=== PATIENT | female | born 1975 | race Caucasian/White ===

== ENCOUNTER 2019-03-20 10:06 | Day surgery (SDC) | payer OTHER ==
[2019-03-20] MEDS ORDERED: Sodium Chloride 0.9% 10 ML Syringe FLUSH PRN (10:27)
[2019-03-20] MEDS ORDERED: Sodium Chloride 0.9% 1,000 ML IV ONE (10:27)
--- NOTE | 2019-03-20 10:46 | EDM.PDOC ---
ED HPI GENERAL MEDICAL PROBLEM - General Chief Complaint: [employer]SEM[employer]ER Problem Stated Complaint: SNYCOPE, MISCARRIAGE THIS MORNING Time Seen by Provider: 03/20/19 10:54 - History of Present Illness INITIAL COMMENTS - FREE TEXT/NARRATIVE: Patient's unfortunate 43-year-old female who presents to department today with complaint of vaginal bleeding. Patient reports she was in normal state of health until last when she had a sonogram in her OBs office Dr. Mejia and is reported as showing a incomplete AB. Was scheduled for a D&C today at noon. Patient has been nothing by mouth since midnight last night. Patient reports that yesterday she started having vaginal bleeding which was light and spotting which progressed to heavy bleeding last night the patient reports she has been through multiple pads per hour that are completely soaked. Patient reports she got up to the bathroom today and on the commode and passed out the significant other reports that she was out for "a few seconds". Patient did not suffer any trauma did however fall to the ground. She denies any other pain other than suprapubic abdominal pain which she reports as moderate. 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 Denies: Fever, Chills HEENT: Reports: No Symptoms Respiratory: Reports: No Symptoms Cardiovascular: Reports: No Symptoms Endocrine: Reports: No Symptoms GI/Abdominal: Reports: No Symptoms. Denies: Abdominal Pain, Diarrhea, Nausea, Vomiting : Reports: Other (vaginal bleeding) 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: Reports: No Symptoms Skin: Reports: No Symptoms Neurological: Reports: Syncope Psychiatric: Reports: No Symptoms Hematologic/Lymphatic: Reports: No Symptoms Immunologic: Reports: No Symptoms ED EXAM - Physical Exam Exam: See Below General Appearance: Alert, Moderate Distress Throat/Mouth: Normal Inspection, Normal Lips, Normal Oropharynx Respiratory/Chest: No Respiratory Distress, Lungs Clear, Normal Breath Sounds Cardiovascular: Normal Peripheral Pulses, Regular Rate, Rhythm GI/Abdominal Exam: Normal Bowel Sounds, Soft, Tender (suprapubic/moderate) (Female) Exam: Vaginal Bleeding (large clots cleared from vault, large clots in OS), Other (female present for exam) Back Exam: Normal Inspection. No: CVA Tenderness (L), CVA Tenderness (R) Extremities: Normal Inspection, Normal Range of Motion Neurological: Alert, Oriented, CN II-XII Intact Psychiatric: Tearful Skin Exam: Warm, Dry Course - Vital Signs Last Recorded V/S: Last Vital Signs Temp 98.3 F 03/20/19 10:14 Pulse 79 03/20/19 10:14 Resp 12 03/20/19 10:14 BP 95/63 03/20/19 10:14 Pulse Ox 97 03/20/19 10:14 - Orders/Labs/Meds Orders: Active Orders 24 hr Category Date Time Status Pelvic Exam, Set Up [RC] ASDIRECTED Care 03/20/19 10:30 Active CBC WITH AUTO DIFF [HEME] Stat Lab 03/20/19 10:55 Received COMPREHENSIVE METABOLIC PN,CMP [CHEM] Stat Lab 03/20/19 10:55 Received PACKED CELLS [RED BLOOD CELLS LP] [BBK] Stat Lab 03/20/19 10:55 Received TYPE AND SCREEN [BBK] Stat Lab 03/20/19 10:55 Received UA RFX SARAHI AND CULT IF INDIC [URIN] Stat Lab 03/20/19 10:27 Ordered Sodium Chloride 0.9% [Normal Saline] 1,000 ml Med 03/20/19 10:27 Active IV ONETIME Sodium Chloride 0.9% [Saline Flush] Med 03/20/19 10:27 Active 10 ml FLUSH ASDIRECTED PRN Saline Lock Insert [OM.PC] Stat Oth 03/20/19 10:27 Ordered Schedule Procedure [COMM] Stat Oth 03/20/19 11:01 Ordered Medication Orders Sodium Chloride (Normal Saline) 1,000 mls @ 1,000 mls/hr IV ONETIME ONE Stop: 03/20/19 11:26 Sodium Chloride (Saline Flush) 10 ml FLUSH ASDIRECTED PRN PRN Reason: Keep Vein Open Meds: Medications Generic Name Dose Route Start Last Admin Trade Name Freq PRN Reason Stop Dose Admin Sodium Chloride 1,000 mls @ 1,000 mls/hr 03/20/19 10:27 Normal Saline IV 03/20/19 11:26 ONETIME ONE Sodium Chloride 10 ml 03/20/19 10:27 Saline Flush FLUSH ASDIRECTED PRN Keep Vein Open - Re-Assessments/Exams Free Text/Narrative Re-Assessment/Exam: 03/20/19 10:[address] Mejia who will assume care at this point he is in the Department to see the pt Free Text/Narrative Re-Assessment/Exam: 03/20/19 10:59 Patient was seen by Dr. Mejia take the patient to the OR Departure - Departure Time of Disposition: 11:00 Disposition: DC/Tfer to Critical Access [facility] Condition: Critical Clinical Impression: Incomplete , Vaginal hemorrhage - Discharge Information Referrals: Neal Darby MD [Primary Care Provider] - Forms: ED Department Discharge - My Orders Last 24 Hours: My Active Orders 03/20/19 10:27 UA RFX SARAHI AND CULT IF INDIC [URIN] Stat Sodium Chloride 0.9% [Normal Saline] 1,000 ml IV ONETIME Sodium Chloride 0.9% [Saline Flush] 10 ml FLUSH ASDIRECTED PRN Saline Lock Insert [OM.PC] Stat 03/20/19 10:30 Pelvic Exam, Set Up [RC] ASDIRECTED 03/20/19 10:55 CBC WITH AUTO DIFF [HEME] Stat COMPREHENSIVE METABOLIC PN,CMP [CHEM] Stat PACKED CELLS [RED BLOOD CELLS LP] [BBK] Stat TYPE AND SCREEN [BBK] Stat 03/20/19 11:01 Schedule Procedure [COMM] Stat - Assessment/Plan Last 24 Hours: My Active Orders 03/20/19 10:27 UA RFX SARAHI AND CULT IF INDIC [URIN] Stat Sodium Chloride 0.9% [Normal Saline] 1,000 ml IV ONETIME Sodium Chloride 0.9% [Saline Flush] 10 ml FLUSH ASDIRECTED PRN Saline Lock Insert [OM.PC] Stat 03/20/19 10:30 Pelvic Exam, Set Up [RC] ASDIRECTED 03/20/19 10:55 CBC WITH AUTO DIFF [HEME] Stat COMPREHENSIVE METABOLIC PN,CMP [CHEM] Stat PACKED CELLS [RED BLOOD CELLS LP] [BBK] Stat TYPE AND SCREEN [BBK] Stat 03/20/19 11:01 Schedule Procedure [COMM] Stat
[2019-03-20] MEDS ORDERED: Lactated Ringers 1,000 ML IV ONE (11:10)
[2019-03-20] MEDS ORDERED: Lactated Ringers 1,000 ML ONE (11:15)
[2019-03-20] MEDS ORDERED: Methylergonovine 0.2 MG/1 ML Amp ONE (11:31)
--- NOTE | 2019-03-20 12:07 | PCM48HPAN ---
Post Anesthesia Note - EVALUATION WITHIN 48HRS OF ANESTHETIC Vital Signs in Normal Range: Yes Patient Participated in Evaluation: Yes Respiratory Function Stable: Yes Airway Patent: Yes Cardiovascular Function Stable: Yes Hydration Status Stable: Yes Pain Control Satisfactory: Yes Nausea and Vomiting Control Satisfactory: Yes Mental Status Recovered: Yes Vital Signs: Last Vital Signs Temp 36.8 C 03/20/19 10:14 Pulse 79 03/20/19 10:14 Resp 12 03/20/19 10:14 BP 95/63 03/20/19 10:14 Pulse Ox 97 03/20/19 10:14
[2019-03-20] MEDS ORDERED: Lactated Ringers 1,000 ML IV SCH (13:48)
--- NOTE | 2019-03-24 11:31 | PCM.OPNOTE ---
- General Post-Op/Procedure Note Date of Surgery/Procedure: 03/20/19 Operative Procedure(s): Dilation and suction curettage Findings: Uterus sounded to 11 cm. Tissue within the endometrial cavity was consistent with products of conception. No adnexal abnormalities noted. Pre Op Diagnosis: Incomplete spontaneous Post-Op Diagnosis: Same Other Anesthesia Type: [facility] [place] Primary Surgeon: Jesús Mejia Pathology: Endometrial curettings Fluid Replacement, Intraop: 700 EBL in mLs: 100 Complications: None Condition: Good Free Text/Narrative:: Surgery duration: 5 minutes The patient was taken to the operating room and placed in a supine position operating table. She received 2 g of Ancef preoperatively for infection prophylaxis and had sequential compression stockings in place for DVT prophylaxis. After adequate general LMA anesthesia patient was placed in a dorsal lithotomy position. A weighted speculum was placed in the vagina. Cervix is found to be dilated to approximately 1 centimeters. Uterus was sounded to approximately 11 cm. It was found to be anterior and mid position. An 10 mm suction curette was then introduced in routine fashion the endometrial cavity was evacuated. Moderate amount tissue was obtained. Findings consistent with products of conception. A medium size sharp curet was introduced and very careful fashion the endometrial cavity was curetted. It was be clear of any further tissue. The suction curet was then reintroduced and small and blood was removed. No further tissue was removed. This point the D&C was discontinued. The single-toothed tenaculum used to stabilize the anterior lip the cervix was removed. Blood was removed from the vagina with a stick sponge and the weighted speculum was removed from the vagina. The patient was awakened from MAC anesthesia. The patient was discharged from the operating room in good condition.
== END 2019-03-20 15:30 | disposition home or self-care (01) ==
LOC: JD.ED 10:06 → JD.SDS 11:25
PROVIDERS: ATTEND Obstetrics & Gynecology
DX: O03.4 Incomplete spontaneous abortion without complication (principal); K21.9 Gastro-esophageal reflux disease without esophagitis
CPT/HCPCS: 36415; 59812; 80053; 85025; 86850; 86900; 86901; 86922; 99284; J2210; J7040; J7120; 01965

== ENCOUNTER 2019-10-11 11:02 | Day surgery (SDC) | payer OTHER ==
[~2019-10-11 11:02] MED LIST: Lactated Ringers 1,000 ML IV SCH; Lidocaine 1%/Sod Bicarbonate in NS 8.4% 1 ML Syringe IDERM PRN; Sodium Chloride 0.9% 10 ML Syringe FLUSH PRN
--- NOTE | 2019-10-11 11:44 | PCM.PREANE ---
Preanesthetic Assessment - Procedure Proposed Procedure: suction d and c - Anesthesia/Transfusion/Family Hx Anesthesia History: Prior Anesthesia Without Reaction Family History of Anesthesia Reaction: No Transfusion History: Prior Transfusion Without Reaction - Review of Systems General: No Symptoms Pulmonary: No Symptoms Cardiovascular: No Symptoms Gastrointestinal: Abdominal Pain (started yesterday am) Neurological: No Symptoms Other: Reports: Anxiety - Physical Assessment NPO Status Date: 10/10/19 NPO Status Time: 22:00 Vital Signs: Last Vital Signs Temp 97.6 F 10/11/19 11:05 Pulse 73 10/11/19 11:05 Resp 16 10/11/19 11:05 BP 108/62 10/11/19 11:05 Pulse Ox 96 10/11/19 11:05 Height: 5 ft 6 in Weight: 63.503 kg ASA Class: 2 Mental Status: Alert & Oriented x3 Airway Class: Mallampati = 1 Dentition: Reports: Normal Dentition Thyro-Mental Finger Breadths: 3 Mouth Opening Finger Breadths: 3 ROM/Head Extension: Full Lungs: Clear to Auscultation, Normal Respiratory Effort Cardiovascular: Regular Rate, Regular Rhythm, No Murmurs - Allergies Allergies/Adverse Reactions: Allergies Allergy/AdvReac Type Severity Reaction Status Date / Time nitazoxanide [From Alinia] Allergy Hives Verified 03/24/19 13:02 bupropion [From Wellbutrin] AdvReac Change Verified 03/24/19 13:03 Mental Status cephalexin AdvReac Diarrhea Verified 03/24/19 13:03 - Blood Blood Available: No - Acknowledgements Anesthesia Type Planned: MAC Pt an Appropriate Candidate for the Planned Anesthesia: Yes Alternatives and Risks of Anesthesia Discussed w Pt/Guardian: Yes Pt/Guardian Understands and Agrees with Anesthesia Plan: Yes PreAnesthesia Questionnaire - Past Health History Medical/Surgical History: Denies Medical/Surgical History Cardiovascular History: Reports: None Respiratory History: Reports: None Gastrointestinal History: Reports: GERD 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: 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 History: Reports: None Psychiatric History: Reports: Anxiety - Past Surgical History Female Surgical History: Reports: D&C, Other (See Below) Dermatological Surgical History: Reports: Other (See Below) (cdiff transplant) - SUBSTANCE USE Smoking Status *Q: Former Smoker Tobacco Use Within Last Twelve Months: No Second Hand Smoke Exposure: No Days Per Week of Alcohol Use: 1 Recreational Drug Use History: No - HOME MEDS Home Medications: Home Meds Escitalopram [Lexapro] 20 mg PO DAILY 03/20/19 [History] Ibuprofen 600 mg PO Q4HR PRN #30 tablet 03/20/19 [Rx] Pnv No.95/Ferrous Fum/Folic AC [ Caplet] 1 tab PO DAILY 03/20/19 [ History] Ranitidine [Zantac] 150 mg PO ASDIRECTED 03/20/19 [History] lamoTRIgine [Lamotrigine] 150 mg PO DAILY 03/20/19 [History] - CURRENT (IN HOUSE) MEDS Current Meds: Current Medications Lactated Ringer's (Ringers, Lactated) 1,000 mls @ 125 mls/hr IV ASDIRECTED MICAELA Stop: 10/11/19 23:00 Last Admin: 10/11/19 11:20 Dose: 125 mls/hr Lidocaine/Sodium Bicarbonate (Buffered Lidocaine 1% In Ns 8.4%) 0.25 ml IDERM ONETIME PRN PRN Reason: Prior to IV Start Stop: 10/11/19 18:00 Last Admin: 10/11/19 11:19 Dose: 0.25 ml Sodium Chloride (Saline Flush) 10 ml FLUSH ASDIRECTED PRN PRN Reason: Keep Vein Open Stop: 10/11/19 18:00
[2019-10-11] MEDS ORDERED: Midazolam 1 MG/ML 2 ML SDV ONE (11:48)
[2019-10-11] MEDS ORDERED: Propofol 200 MG/20 ML SDV ONE (11:48)
[2019-10-11] MEDS ORDERED: Lidocaine 1% 4 ML ONE (11:48)
[2019-10-11] MEDS ORDERED: fentaNYL 100 MCG/2 ML SDV ONE (11:48)
[2019-10-11] MEDS ORDERED: Ketorolac 30 MG/ML SDV ONE (12:00)
[2019-10-11] MEDS ORDERED: Ondansetron 4 MG/2 ML SDV ONE (12:00)
--- NOTE | 2019-10-11 12:30 | PCM48HPAN ---
Post Anesthesia Note - EVALUATION WITHIN 48HRS OF ANESTHETIC Vital Signs in Normal Range: Yes Patient Participated in Evaluation: Yes Respiratory Function Stable: Yes Airway Patent: Yes Cardiovascular Function Stable: Yes Hydration Status Stable: Yes Pain Control Satisfactory: Yes Nausea and Vomiting Control Satisfactory: Yes Mental Status Recovered: Yes Vital Signs: Last Vital Signs Temp 97.6 F 10/11/19 11:05 Pulse 73 10/11/19 11:05 Resp 16 10/11/19 11:05 BP 108/62 10/11/19 11:05 Pulse Ox 96 10/11/19 11:05 1226 71 16 98.9 104/56 94%
[2019-10-11] MEDS ORDERED: Ondansetron 4 MG/2 ML SDV IVPUSH PRN (12:33)
[2019-10-11] MEDS ORDERED: Ibuprofen 600 MG Tab PO PRN ×2 (12:33→18:00)
--- NOTE | 2019-10-11 12:38 | PCM.OPNOTE ---
- General Post-Op/Procedure Note Date of Surgery/Procedure: 10/11/19 Operative Procedure(s): Dilation and suction curettage Findings: Uterus sounded to 10 cm. It was posteriorly positioned. Approximately 8 weeks size. Adnexa within normal ends without masses. Cervix is 1-2 Zhu dilated. Tissue removed from the endometrial cavity was consistent with products of conception. Patient was bleeding at the time of the initiation of the procedure. Pre Op Diagnosis: Threatened miscarriage Post-Op Diagnosis: Inevitable miscarriage Anesthesia Technique: Moderate Sedation Pathology: Endometrial curettings Fluid Replacement, Intraop: 600 EBL in mLs: 25 Complications: None Condition: Good Free Text/Narrative:: Surgery duration: 17 minutes The patient was taken to the operating room and placed in a supine position operating table. After adequate general LMA anesthesia patient was placed in a dorsal lithotomy position. A weighted speculum was placed in the vagina. Cervix is found to be dilated to approximately 1-2 centimeters. Uterus was sounded to approximately 10 cm. It was found to be posterior and mid position. An 7 mm suction curette was then introduced in routine fashion the endometrial cavity was evacuated. Moderate amount tissue was obtained. Findings consistent with products of conception. A medium size sharp curet was introduced and very careful fashion the endometrial cavity was curetted. It was be clear of any further tissue. The suction curet was then reintroduced and small and blood was removed. No further tissue was removed. This point the D&C was discontinued. The single-toothed tenaculum used to stabilize the anterior lip the cervix was removed. Blood was removed from the vagina with a stick sponge and the weighted speculum was removed from the vagina. The patient was discharged from the operating room in good condition.
== END 2019-10-11 13:55 | disposition home or self-care (01) ==
LOC: JD.SDS 11:02
PROVIDERS: ATTEND Obstetrics & Gynecology
DX: O03.4 Incomplete spontaneous abortion without complication (principal); Z88.8 Allergy status to other drugs, medicaments and biological substances; Z87.891 Personal history of nicotine dependence; Z79.899 Other long term (current) drug therapy
CPT/HCPCS: 59812; J1885; J2001; J2250; J2405; J2704; J3010; J7120; 01965

== ENCOUNTER 2020-07-10 17:35 | Inpatient (IN) | payer OTHER ==
[2020-07-10] MEDS ORDERED: Lactated Ringers 1,000 ML ONE ×2 (20:21→21:19)
[2020-07-10] MEDS ORDERED: Citric Acid/Sodium Citrate Solution 30 ML Cup ONE (20:21)
[2020-07-10] MEDS ORDERED: Metoclopramide 10 MG/2 ML SDV ONE (20:21)
[2020-07-10] MEDS ORDERED: Citric Acid/Sodium Citrate Solution 30 ML Cup PO ONE (20:28)
[2020-07-10] MEDS ORDERED: Sodium Chloride 0.9% 10 ML Syringe FLUSH PRN (20:28)
[2020-07-10] MEDS ORDERED: Metoclopramide 10 MG/2 ML SDV IVPUSH ONE (20:28)
[2020-07-10] MEDS ORDERED: Oxytocin/Lactated Ringers 10 UNIT/1,000 ML BAG IV SCH (20:30)
[2020-07-10] MEDS ORDERED: Lactated Ringers 1,000 ML IV SCH (20:30)
[2020-07-10] MEDS ORDERED: Clindamycin Phosphate in D5W 900 MG in Premix Bag 1 BAG IV ONE ×2 (20:31)
[2020-07-10] MEDS ORDERED: Bupivacaine 0.5% 30 ML SDV ONE (20:39)
[2020-07-10] MEDS ORDERED: Gentamicin 40 MG/ML 2 ML Vial ONE (20:39)
--- NOTE | 2020-07-10 20:39 | PCM.PREANE ---
Preanesthetic Assessment - Procedure Proposed Procedure: Urgent - Anesthesia/Transfusion/Family Hx Anesthesia History: Prior Anesthesia Without Reaction Transfusion History: Prior Transfusion Without Reaction - Review of Systems General: No Symptoms Pulmonary: No Symptoms, Cough Cardiovascular: No Symptoms Gastrointestinal: No Symptoms Neurological: No Symptoms Other: Reports: None - Physical Assessment NPO Status Date: 07/10/20 NPO Status Time: 16:00 Vital Signs: Last Vital Signs Temp 98.1 F 07/10/20 18:00 Pulse 91 07/10/20 18:00 Resp 14 07/10/20 18:00 BP 128/80 07/10/20 18:00 Pulse Ox 98 07/10/20 18:00 Height: 1.68 m Weight: 68.039 kg ASA Class: 3E Mental Status: Alert & Oriented x3 Airway Class: Mallampati = 1 Dentition: Reports: Normal Dentition Thyro-Mental Finger Breadths: 3 Mouth Opening Finger Breadths: 3 ROM/Head Extension: Full Lungs: Clear to Auscultation, Normal Respiratory Effort Cardiovascular: Regular Rate, Regular Rhythm - Lab Values: Laboratory Last Values SARS-CoV-2 RNA (MAGALIS) Negative (NEGATIVE) 07/10/20 19:15 - Allergies Allergies/Adverse Reactions: Allergies Allergy/AdvReac Type Severity Reaction Status Date / Time nitazoxanide [From Alinia] Allergy Hives Verified 07/10/20 17:48 bupropion [From Wellbutrin] AdvReac Change Verified 07/10/20 17:48 Mental Status cephalexin AdvReac Diarrhea Verified 07/10/20 17:48 - Acknowledgements Anesthesia Type Planned: General Anesthesia, Spinal Pt an Appropriate Candidate for the Planned Anesthesia: Yes Alternatives and Risks of Anesthesia Discussed w Pt/Guardian: Yes Pt/Guardian Understands and Agrees with Anesthesia Plan: Yes PreAnesthesia Questionnaire - Past Health History Medical/Surgical History: Denies Medical/Surgical History Cardiovascular History: Reports: None Respiratory History: Reports: None 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: 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 History: Reports: None Psychiatric History: Reports: Anxiety Endocrine/Metabolic History: Reports: Diabetes, Gestational Hematologic History: Reports: Anemia - Past Surgical History Female Surgical History: Reports: D&C, Other (See Below) Dermatological Surgical History: Reports: Other (See Below) (cdiff transplant) - HOME MEDS Home Medications: Home Meds Escitalopram [Lexapro] 10 mg PO DAILY 03/20/19 [History] Pnv No.95/Ferrous Fum/Folic AC [ Caplet] 1 tab PO DAILY 03/20/19 [History] lamoTRIgine [Lamotrigine] 150 mg PO DAILY 03/20/19 [History] Ferrous Sulfate [Iron] 325 mg PO 06/07/20 [History] NIFEdipine [Procardia] 10 mg PO TID PRN #60 cap 06/07/20 [Rx] metFORMIN HCl [Metformin HCl] 500 mg PO DAILY 06/07/20 [History] - CURRENT (IN HOUSE) MEDS Current Meds: Current Medications Gentamicin Sulfate (Pharmacy To Dose - Gentamicin) 1 dose .XX ASDIRECTED MICAELA Lactated Ringer's (Ringers, Lactated) 1,000 mls @ 125 mls/hr IV ASDIRECTED MICAELA Oxytocin/Lactated Ringer's (Pitocin In Lr 10 Units/1,000 Ml) 10 unit in 1,000 mls @ 100 mls/hr IV ASDIRECTED MICAELA Clindamycin Phosphate 900 mg/ (Premix) 50 mls @ 100 mls/hr IV ONETIME ONE Stop: 07/10/20 21:00 Sodium Chloride (Saline Flush) 10 ml FLUSH ASDIRECTED PRN PRN Reason: Keep Vein Open Discontinued Medications Citric Acid/Sodium Citrate (Bicitra Solution) Confirm Administered Dose 30 ml .ROUTE .STK-MED ONE Stop: 07/10/20 20:22 Last Admin: 07/10/20 20:26 Dose: 30 ml Documented by: Citric Acid/Sodium Citrate (Bicitra Solution) 30 ml PO ONETIME ONE Stop: 07/10/20 20:29 Lactated Ringer's (Ringers, Lactated) Confirm Administered Dose 1,000 mls @ as directed .ROUTE .STK-MED ONE Stop: 07/10/20 20:22 Last Admin: 07/10/20 20:26 Dose: 999 mls/hr Documented by: Metoclopramide HCl (Reglan) Confirm Administered Dose 10 mg .ROUTE .STK-MED ONE Stop: 07/10/20 20:22 Last Admin: 07/10/20 20:28 Dose: 10 mg Documented by: Metoclopramide HCl (Reglan) 10 mg IVPUSH ONETIME ONE Stop: 07/10/20 20:29
[2020-07-10] MEDS ORDERED: Sodium Chloride 0.9% 100 ML ONE (20:40)
[2020-07-10] MEDS ORDERED: Morphine PF 10 MG/10 ML SDV ONE (20:42)
[2020-07-10] MEDS ORDERED: fentaNYL 100 MCG/2 ML SDV ONE (20:42)
[2020-07-10] MEDS ORDERED: Oxytocin 10 Units/1 ML SDV ONE (20:42)
[2020-07-10] MEDS ORDERED: SODIUM CHLORIDE 0.9% IV SCH (21:00)
[2020-07-10] MEDS ORDERED: GENTAMICIN IV SCH (21:00)
[2020-07-10] MEDS ORDERED: fentaNYL 100 MCG/2 ML SDV IVPUSH PRN (21:22)
[2020-07-10] MEDS ORDERED: Ondansetron 4 MG/2 ML SDV IVPUSH PRN (21:22)
[2020-07-10] MEDS ORDERED: diphenhydrAMINE 50 MG/ML SDV IVPUSH PRN (21:22)
[2020-07-10] MEDS ORDERED: Ketorolac 30 MG/ML SDV ONE (21:38)
--- NOTE | 2020-07-10 21:56 | PCM.POSTAN ---
POST ANESTHESIA ASSESSMENT - MENTAL STATUS Mental Status: Alert, Oriented - VITAL SIGNS Vital Signs: Last Vital Signs Temp 97.8 F 07/10/20 21:45 Pulse 91 07/10/20 18:00 Resp 14 07/10/20 21:45 BP 121/67 07/10/20 21:45 Pulse Ox 95 07/10/20 21:45 - RESPIRATORY Respiratory Status: Respiratory Rate WNL, Airway Patent, O2 Saturation Stable - CARDIOVASCULAR CV Status: Pulse Rate WNL, Blood Pressure Stable - GASTROINTESTINAL GI Status: No Symptoms - PAIN Pain Score: 0 (post SAB) - POST OP HYDRATION Hydration Status: Adequate & Stable
--- NOTE | 2020-07-10 22:04 | PCM.LDHP ---
L&D History of Present Illness - General Date of Service: 07/10/20 Admit Problem/Dx: Patient Status Order with Admit Dx/Problem 07/10/20 17:41 Patient Status [ADT] Routine 07/10/20 20:28 Patient Status [ADT] Routine Admission Diagnosis/Problem Admission Diagnosis/Problem - History of Present Illness Introduction:: 44 year old female at 38w4 who had been in clinic for an NST. Had a deceleration toward end of monitoring so was sent for prolonged monitoring. Had overall reassuring monitoring with some deep variable decelerations and marked variability. As I was discussing recommendation for induction of labor there was a deceleration to the 50s for 4 minutes and then gradual slow return to baseline but tachycardia. Decision made during deceleration to proceed with section. After return to baseline did discuss options but patient chose to proceed with . - Related Data Allergies/Adverse Reactions: Allergies Allergy/AdvReac Type Severity Reaction Status Date / Time nitazoxanide [From Alinia] Allergy Hives Verified 07/10/20 17:48 bupropion [From Wellbutrin] AdvReac Change Verified 07/10/20 17:48 Mental Status cephalexin AdvReac Diarrhea Verified 07/10/20 17:48 Home Medications: Home Meds Escitalopram [Lexapro] 10 mg PO DAILY 03/20/19 [History] Pnv No.95/Ferrous Fum/Folic AC [ Caplet] 1 tab PO DAILY 03/20/19 [H istory] lamoTRIgine [Lamotrigine] 150 mg PO DAILY 03/20/19 [History] Ferrous Sulfate [Iron] 325 mg PO 06/07/20 [History] NIFEdipine [Procardia] 10 mg PO TID PRN #60 cap 06/07/20 [Rx] metFORMIN HCl [Metformin HCl] 500 mg PO DAILY 06/07/20 [History] Past Medical History - Past Health History Medical/Surgical History: Denies Medical/Surgical History Cardiovascular History: Reports: None Respiratory History: Reports: None Gastrointestinal History: Reports: GER[employer] 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: 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 History: Reports: None Psychiatric History: Reports: Anxiety Endocrine/Metabolic History: Reports: Diabetes, Gestational Hematologic History: Reports: Anemia - Past Surgical History Female Surgical History: Reports: D&C, Other (See Below) Dermatological Surgical History: Reports: Other (See Below) (cdiff transplant) Social & Family History - Family History Family Medical History: No Pertinent Family History - Caffeine Use Caffeine Use: Reports: None H&P Review of Systems - Review of Systems: Review Of Systems: See Below General: Reports: No Symptoms HEENT: Reports: No Symptoms Pulmonary: Reports: No Symptoms Cardiovascular: Reports: No Symptoms Gastrointestinal: Reports: No Symptoms Genitourinary: Reports: No Symptoms 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: Reports: No Symptoms Skin: Reports: No Symptoms Psychiatric: Reports: No Symptoms Neurological: Reports: No Symptoms Hematologic/Lymphatic: Reports: No Symptoms Immunologic: Reports: No Symptoms L&D Exam - Exam Exam: See Below - Vital Signs Vital Signs: Last Vital Signs Temp 36.6 C 07/10/20 21:45 Pulse 91 07/10/20 18:00 Resp 14 07/10/20 21:45 BP 121/67 07/10/20 21:45 Pulse Ox 95 07/10/20 21:45 Weight: 68.039 kg - OB Specific Contraction Intensity: Moderate Movement: Active Heart Tones: Present Heart Rate (FHR) Variability: Moderate (6-25 bmp) Presentation: Vertex - Fuller Score Fuller Score Cervix Position: Anterior Fuller Score Consistency: Soft Fuller Score Effacement: 51-70% Fuller Score Dilation: 1-2 cm Fuller Score 's Station: -2 Fuller Score Total: 8 - Exam General: Alert, Oriented HEENT: PERRLA, Conjunctiva Clear, EACs Clear, EOMI, Hearing Intact, Mucosa Moist & [place], Nares Patent, Normal Nasal Septum, Posterior Pharynx Clear, TMs Clear Neck: Supple, Trachea Midline Lungs: Clear to Auscultation, Normal Respiratory Effort Cardiovascular: Regular Rate, Regular Rhythm GI/Abdominal Exam: Normal Bowel Sounds, Soft, Non-Tender, No Organomegaly, No Distention, No Abnormal Bruit, No Mass, Pelvis Stable Extremities: Normal Inspection, Normal Range of Motion, Non-Tender, No Pedal Edema, Normal Capillary Refill Skin: Warm, Dry, Intact Neurological: Cranial Nerves Intact, Reflexes Equal Bilateral Psychiatric: Alert, Normal Affect, Normal Mood - Patient Data Lab Results Last 24 hrs: Laboratory Results - last 24 hr 07/10/20 07/10/20 07/10/20 Range/Units 19:15 20:23 20:27 WBC (3.98-10.04) K/mm3 RBC (3.98-5.22) M/mm3 Hgb (11.2-15.7) gm/dl Hct (34.1-44.9) % MCV (79.4-94.8) fl MCH (25.6-32.2) pg MCHC (32.2-35.5) g/dl RDW Std Deviation (36.4-46.3) fL Plt Count (182-369) K/mm3 MPV (9.4-12.3) fl POC Glucose 87 (70-105) mg/dL SARS-CoV-2 RNA (MAGALIS) Negative (NEGATIVE) Blood Type O POSITIVE 07/10/20 Range/Units 20:27 WBC 7.47 (3.98-10.04) K/mm3 RBC 4.11 (3.98-5.22) M/mm3 Hgb 10.4 L (11.2-15.7) gm/dl Hct 33.3 L (34.1-44.9) % MCV 81.0 (79.4-94.8) fl MCH 25.3 L (25.6-32.2) pg MCHC 31.2 L (32.2-35.5) g/dl RDW Std Deviation 57.7 H (36.4-46.3) fL Plt Count 265 (182-369) K/mm3 MPV 9.5 (9.4-12.3) fl POC Glucose (70-105) mg/dL SARS-CoV-2 RNA (MAGALIS) (NEGATIVE) Blood Type Result Diagrams: 07/10/20 20:27 Problem List Initiated/Reviewed/Updated: Yes Orders Last 24hrs: Active Orders 24 hr Category Date Time Status Patient Status Manage Transfer [TRANSFER] Routine ADT 07/10/20 21:51 Ordered Patient Status [ADT] Routine ADT 07/10/20 17:41 Active Patient Status [ADT] Routine ADT 07/10/20 20:28 Active Communication Order [RC] ASDIRECTED Care 07/10/20 21:22 Active Communication Order [RC] PER UNIT ROUTINE Care 07/10/20 21:22 Active Communication Order [RC] ROUTINE Care 07/10/20 20:28 Active Cooling Warming Measures [RC] ASDIRECTED Care 07/10/20 21:22 Active Heart Tones [RC] PER UNIT ROUTINE Care 07/10/20 20:28 Active Non Stress Test [RC] PER UNIT ROUTINE Care 07/10/20 20:28 Active Notify Provider [RC] ASDIRECTED Care 07/10/20 21:22 Active Oxygen Therapy [RC] ASDIRECTED Care 07/10/20 21:22 Active Peripheral IV Care [RC] . DIRECTED Care 07/10/20 20:28 Active Procedure Site Prep Instruct [RC] ASDIRECTED Care 07/10/20 20:28 Active Pulse Oximetry [RC] ASDIRECTED Care 07/10/20 21:22 Active Verify Patient Consent Obtain [RC] PER UNIT ROUTINE Care 07/10/20 20:28 Active Vital Signs [RC] PER UNIT ROUTINE Care 07/10/20 17:41 Active Vital Signs [RC] PFP Care 07/10/20 20:28 Active Vital Signs [RC] Q15M Care 07/10/20 21:22 Active Vital Signs [RC] Q1H Care 07/10/20 21:22 Active RAPID PLASMA REAGIN,RPR [CHEM] Routine Lab 07/10/20 20:27 Received TYPE AND SCREEN [BBK] Routine Lab 07/10/20 20:27 Results Gentamicin 108 mg Med 07/10/20 21:00 Active Sodium Chloride 0.9% [Normal Saline] 100 ml IV Q8H Lactated Ringers [Ringers, Lactated] 1,000 ml Med 07/10/20 20:30 Active IV ASDIRECTED Ondansetron [Zofran] Med 07/10/20 21:22 Active 4 mg IVPUSH ONETIME PRN Oxytocin/Lactated Ringers [Pitocin in LR 10 Units/1,000 Med 07/10/20 20:30 Active ML] 10 unit in 1,000 ml IV ASDIRECTED Pharmacy to Dose - Gentamicin Med 07/10/20 20:45 Pending 1 dose .XX ASDIRECTED Sodium Chloride 0.9% [Saline Flush] Med 07/10/20 20:28 Active 10 ml FLUSH ASDIRECTED PRN diphenhydrAMINE [Benadryl] Med 07/10/20 21:22 Active 25 mg IVPUSH Q6H PRN fentaNYL [Sublimaze] Med 07/10/20 21:22 Active 50 mcg IVPUSH Q5M PRN Peripheral IV Insertion Adult [OM.PC] Routine Oth 07/10/20 20:28 Ordered Pulse Oximetry Continuous Monitoring [OM.PC] Routine Oth 07/10/20 21:22 Active Schedule Procedure [COMM] Per Unit Routine Oth 07/10/20 20:28 Ordered Resuscitation Status Routine Resus Stat 07/10/20 17:41 Ordered Medication Orders Diphenhydramine HCl (Benadryl) 25 mg IVPUSH Q6H PRN PRN Reason: Pruritis Fentanyl (Sublimaze) 50 mcg IVPUSH Q5M PRN PRN Reason: Pain Gentamicin Sulfate (Pharmacy To Dose - Gentamicin) 1 dose .XX ASDIRECTED MICAELA Lactated Ringer's (Ringers, Lactated) 1,000 mls @ 125 mls/hr IV ASDIRECTED MICAELA Oxytocin/Lactated Ringer's (Pitocin In Lr 10 Units/1,000 Ml) 10 unit in 1,000 mls @ 100 mls/hr IV ASDIRECTED MICAELA Gentamicin Sulfate 108 mg/ (Sodium Chloride) 102.7 mls @ 102.7 mls/hr IV Q8H MICAELA Ondansetron HCl (Zofran) 4 mg IVPUSH ONETIME PRN PRN Reason: Nausea/Vomiting Sodium Chloride (Saline Flush) 10 ml FLUSH ASDIRECTED PRN PRN Reason: Keep Vein Open Assessment/Plan Comment:: Proceed with urgent section.
--- NOTE | 2020-07-10 22:12 | PCM.OPNOTE ---
- General Post-Op/Procedure Note Date of Surgery/Procedure: 07/10/20 Operative Procedure(s): primary section. Pre Op Diagnosis: non-reassuring status Post-Op Diagnosis: Same Anesthesia Technique: Spinal Primary Surgeon: Vi Martino Food Truck Caterer: Fernanda Brown Fluid Replacement, Intraop: 1,500 Output, Urine Amount: 250 EBL in mLs: 900 Complications: None Condition: Good Free Text/Narrative:: The patient was taken to the operating room where spinal anesthesia was dosed to surgical levels without difficulty. The patient was prepped and draped in the usual sterile fashion in the dorsal supine position with a leftward tilt. A Pfannenstiel skin incision was made with the scalpel and carried through to the underlying layer of fascia. The fascia was incised in the midline and extended laterally using Moncada scissors. Sandeep clamps were used to elevate the superior aspect of the fascial incision, which was elevated, and the underlying rectus muscles were dissected off bluntly and using Moncada scissors. Attention was then turned to the inferior aspect of the fascial incision, which in similar fashion was grasped with Sandeep clamps, elevated, and the underlying rectus muscles were dissected off bluntly and using the moncada. The rectus muscles were dissected in the midline. The peritoneum was entered bluntly; this incision was extended superiorly and inferiorly with good visualization of the bladder. The bladder blade was inserted. The vesicouterine peritoneum was identified and entered sharply using Metzenbaum scissors. This incision was extended laterally and the bladder flap was created digitally. The bladder blade was reinserted. The lower uterine segment was incised in a transverse fashion using the scalpel and with digital traction. Clear fluid was noted. The was subsequently delivered by flexing the head to the incision. Body and shoulders followed without difficulty. The cord was clamped and cut. The infant was subsequently handed to the awaiting dot net developer whose presence had been requested.. The placenta was delivered spontaneously intact with a three-vessel cord noted. The uterus was exteriorized and cleared of all clots and debris. The uterine incision was repaired in 2 layers using 0 monocryl. Hemostasis was visualized. Hemostasis was visualized bilaterally. The uterus was returned to the abdomen. The uterine incision was reexamined and it was noted to be hemostatic. The pelvis was copiously irrigated. The fascia was closed with 1 PDS suture, and the skin was closed with 3-0 monocryl. Sponge, lap, and instrument counts were correct x2. The patient was stable at the completion of the procedure and was subsequently transferred to the recovery room in stable condition.
[2020-07-11] MEDS ORDERED: ePHEDrine 50 MG/ML SDV IVPUSH PRN (00:46)
[2020-07-11] MEDS ORDERED: Naloxone 0.4 MG/ML SDV IVPUSH PRN (00:46)
[2020-07-11] MEDS ORDERED: Dextrose 5%-Lactated Ringers 1,000 ML IV SCH (00:46)
[2020-07-11] MEDS ORDERED: diphenhydrAMINE 50 MG/ML SDV IVPUSH PRN (00:46)
--- NOTE | 2020-07-11 02:44 | PCM.PNPP ---
- General Info Date of Service: 07/11/20 Subjective Update: 44 year old postop day 1 from section for NRFHT. Doing well. Functional Status: Reports: Pain Controlled - Review of Systems General: Reports: No Symptoms HEENT: Reports: No Symptoms Pulmonary: Reports: No Symptoms Cardiovascular: Reports: No Symptoms Gastrointestinal: Reports: No Symptoms Genitourinary: Reports: No Symptoms 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: Reports: No Symptoms Skin: Reports: No Symptoms Neurological: Reports: No Symptoms Psychiatric: Reports: No Symptoms - General Info Date of Service: 07/11/20 - Patient Data Vital Signs - Most Recent: Last Vital Signs Temp 36.7 C 07/11/20 00:40 Pulse 87 07/11/20 01:24 Resp 15 07/11/20 02:00 BP 129/76 07/11/20 00:40 Pulse Ox 97 07/11/20 02:00 Weight - Most Recent: 68.039 kg I&O - Last 24 Hours: Intake & Output 07/10/20 07/10/20 07/11/20 14:59 22:59 06:59 Intake Total 2100 900 Output Total 750 350 Balance 1350 550 Lab Results - Last 24 Hours: Laboratory Results - last 24 hr 07/10/20 07/10/20 07/10/20 Range/Units 19:15 20:23 20:27 WBC (3.98-10.04) K/mm3 RBC (3.98-5.22) M/mm3 Hgb (11.2-15.7) gm/dl Hct (34.1-44.9) % MCV (79.4-94.8) fl MCH (25.6-32.2) pg MCHC (32.2-35.5) g/dl RDW Std Deviation (36.4-46.3) fL Plt Count (182-369) K/mm3 MPV (9.4-12.3) fl POC Glucose 87 (70-105) mg/dL RPR Non-reactive (NONREACTIVE) SARS-CoV-2 RNA (MAGALIS) Negative (NEGATIVE) Blood Type Gel Antibody Screen 07/10/20 07/10/20 Range/Units 20:27 20:27 WBC 7.47 (3.98-10.04) K/mm3 RBC 4.11 (3.98-5.22) M/mm3 Hgb 10.4 L (11.2-15.7) gm/dl Hct 33.3 L (34.1-44.9) % MCV 81.0 (79.4-94.8) fl MCH 25.3 L (25.6-32.2) pg MCHC 31.2 L (32.2-35.5) g/dl RDW Std Deviation 57.7 H (36.4-46.3) fL Plt Count 265 (182-369) K/mm3 MPV 9.5 (9.4-12.3) fl POC Glucose (70-105) mg/dL RPR (NONREACTIVE) SARS-CoV-2 RNA (MAGALIS) (NEGATIVE) Blood Type O POSITIVE Gel Antibody Screen Negative Med Orders - Current: Current Medications Diphenhydramine HCl (Benadryl) 25 mg IVPUSH Q6H PRN PRN Reason: Itching or Nausea Docusate Sodium (Colace) 100 mg PO Q12H PRN PRN Reason: Constipation Ephedrine Sulfate (Ephedrine Sulfate) 5 mg IVPUSH SEECOMMENT PRN PRN Reason: Other Dextrose/Lactated Ringer's (Dextrose 5%-Lactated Ringers) 1,000 mls @ 125 mls/hr IV ASDIRECTED [facility] Stop: 07/11/20 08:45 Last Admin: 07/11/20 01:16 Dose: 125 mls/hr Documented by: Ibuprofen (Motrin) 600 mg PO Q6H PRN PRN Reason: mild pain or fever Ketorolac Tromethamine (Toradol) 30 mg IVPUSH Q6H [facility] Stop: 07/11/20 16:01 Naloxone HCl (Narcan) 0.1 mg IVPUSH SEECOMMENT PRN PRN Reason: Respiratory Depression Oxycodone/Acetaminophen (Percocet 325-5 Mg) 1 tab PO Q4H PRN PRN Reason: Pain (moderate 4-6) Oxycodone/Acetaminophen (Percocet 325-5 Mg) 2 tab PO Q4H PRN PRN Reason: Pain (severe 7-10) Discontinued Medications Bupivacaine HCl (Marcaine 0.5%) Confirm Administered Dose 30 ml .ROUTE .STK-MED ONE Stop: 07/10/20 20:40 Last Admin: 07/10/20 21:08 Dose: 20 ml Documented by: Citric Acid/Sodium Citrate (Bicitra Solution) Confirm Administered Dose 30 ml .ROUTE .ST-MED ONE Stop: 07/10/20 20:22 Last Admin: 07/10/20 20:26 Dose: 30 ml Documented by: Citric Acid/Sodium Citrate (Bicitra Solution) 30 ml PO ONETIME ONE Stop: 07/10/20 20:29 Last Admin: 07/11/20 01:09 Dose: Not Given Documented by: Diphenhydramine HCl (Benadryl) 25 mg IVPUSH Q6H PRN PRN Reason: Pruritis Fentanyl (Sublimaze) Confirm Administered Dose 100 mcg .ROUTE .ST-MED ONE Stop: 07/10/20 20:43 Fentanyl (Sublimaze) 50 mcg IVPUSH Q5M PRN PRN Reason: Pain Gentamicin Sulfate (Pharmacy To Dose - Gentamicin) 1 dose .XX ASDIRECTED [facility] Gentamicin Sulfate (Gentamicin) Confirm Administered Dose 160 mg .ROUTE .[facility] ONE Stop: 07/10/20 20:40 Last Admin: 07/11/20 01:08 Dose: Not Given Documented by: Lactated Ringer's (Ringers, Lactated) Confirm Administered Dose 1,000 mls @ as directed .ROUTE .[facility] ONE Stop: 07/10/20 20:22 Last Admin: 07/10/20 20:26 Dose: 999 mls/hr Documented by: Lactated Ringer's (Ringers, Lactated) 1,000 mls @ 125 mls/hr IV ASDIRECTED [facility] Oxytocin/Lactated Ringer's (Pitocin In Lr 10 Units/1,000 Ml) 10 unit in 1,000 mls @ 100 mls/hr IV ASDIRECTED [facility] Clindamycin Phosphate 900 mg/ (Premix) 50 mls @ 100 mls/hr IV ONETIME ONE Stop: 07/10/20 21:00 Last Admin: 07/11/20 01:19 Dose: 100 mls/hr Documented by: Sodium Chloride (Normal Saline) Confirm Administered Dose 100 mls @ as directed .ROUTE .[facility]-MED ONE Stop: 07/10/20 20:41 Last Admin: 07/11/20 01:19 Dose: 200 mls/hr Documented by: Gentamicin Sulfate 108 mg/ (Sodium Chloride) 102.7 mls @ 102.7 mls/hr IV Q8H [facility] Last Admin: 07/11/20 01:19 Dose: 102.7 mls/hr Documented by: Lactated Ringer's (Ringers, Lactated) Confirm Administered Dose 1,000 mls @ as directed .ROUTE .STK-MED ONE Stop: 07/10/20 21:20 Ketorolac Tromethamine (Toradol) Confirm Administered Dose 30 mg .ROUTE .STK-MED ONE Stop: 07/10/20 21:39 Metoclopramide HCl (Reglan) Confirm Administered Dose 10 mg .ROUTE .STK-MED ONE Stop: 07/10/20 20:22 Last Admin: 07/10/20 20:28 Dose: 10 mg Documented by: Metoclopramide HCl (Reglan) 10 mg IVPUSH ONETIME ONE Stop: 07/10/20 20:29 Last Admin: 07/11/20 01:09 Dose: Not Given Documented by: Miscellaneous Medication (Phenylephrine 1 Mg/10 Ml-Ns) Confirm Administered Dose 1 mg .ROUTE .STK-MED ONE Stop: 07/10/20 21:06 Morphine Sulfate (Duramorph Pf) Confirm Administered Dose 10 mg .ROUTE .STK-MED ONE Stop: 07/10/20 20:43 Ondansetron HCl (Zofran) 4 mg IVPUSH ONETIME PRN PRN Reason: Nausea/Vomiting Oxytocin (Pitocin) Confirm Administered Dose 20 unit .ROUTE .STK-MED ONE Stop: 07/10/20 20:43 Sodium Chloride (Saline Flush) 10 ml FLUSH ASDIRECTED PRN PRN Reason: Keep Vein Open - Interaction Support Person: - Recovery Exam Fundal Tone: Firm Fundal Level: 1 Fingerbreadths Below Umbilicus Fundal Placement: Midline Lochia Amount: Small Lochia Color: Rubra/Red Perineum Description: Intact, Minimal Bruising/Swelling Bladder Status: Indwelling Catheter in Place - Exam General: Alert, Oriented HEENT: Pupils Equal Neck: Supple Lungs: Normal Respiratory Effort GI/Abdominal Exam: Normal Bowel Sounds, Soft, Non-Tender, No Organomegaly, No Distention, No Abnormal Bruit, No Mass, Pelvis Stable Extremities: Normal Inspection, Normal Range of Motion, Non-Tender, No Pedal Edema, Normal Capillary Refill Psy/Mental Status: Alert, Normal Affect, Normal Mood - Problem List Review Problem List Initiated/Reviewed/Updated: Yes - My Orders Last 24 Hours: My Active Orders 07/10/20 17:41 Resuscitation Status Routine 07/11/20 00:46 Acetaminophen/oxyCODONE [Percocet 325-5 MG] 1 tab PO Q4H PRN Acetaminophen/oxyCODONE [Percocet 325-5 MG] 2 tab PO Q4H PRN Dextrose 5%-Lactated Ringers 1,000 ml IV ASDIRECTED Docusate Sodium [Colace] 100 mg PO Q12H PRN Naloxone [Narcan] 0.1 mg IVPUSH SEECOMMENT PRN diphenhydrAMINE [Benadryl] 25 mg IVPUSH Q6H PRN ePHEDrine [ePHEDrine sulfate] 5 mg IVPUSH SEECOMMENT PRN 07/11/20 00:46 Patient Status [ADT] Routine Communication Order [RC] PER UNIT ROUTINE Communication Order [RC] PER UNIT ROUTINE Communication Order [RC] PER UNIT ROUTINE Notify Provider Intake and Out [RC] ASDIRECTED Vital Signs [RC] Q1HR Assess Lochia [WOMSER] Per Unit Routine Assess Uterine Involution [WOMSER] Per Unit Routine Medication Administration Instruction [OM.PC] Routine 07/11/20 04:00 Ketorolac [Toradol] 30 mg IVPUSH Q6H 07/11/20 05:11 CBC WITH AUTO DIFF [HEME] AM 07/11/20 Breakfast Regular Diet [DIET] 07/11/20 21:52 Urinary Catheter Removal [RC] Per Unit Routine 07/11/20 22:00 Ibuprofen [Motrin] 600 mg PO Q6H PRN - Plan Plan:: Doing well Probable discharge tomorrow. CBC pending.
[2020-07-11] MEDS: Ketorolac 30 MG/ML SDV IVPUSH SCH ×3 (04:05→15:42)
[2020-07-11] MEDS: Acetaminophen/oxyCODONE 325-5 MG Tab PO PRN ×4 (05:10→20:07)
--- NOTE | 2020-07-11 08:32 | PCM48HPAN ---
Post Anesthesia Note - EVALUATION WITHIN 48HRS OF ANESTHETIC Vital Signs in Normal Range: Yes Patient Participated in Evaluation: Yes Respiratory Function Stable: Yes Airway Patent: Yes Cardiovascular Function Stable: Yes Hydration Status Stable: Yes Pain Control Satisfactory: Yes Nausea and Vomiting Control Satisfactory: Yes Mental Status Recovered: Yes Vital Signs: Last Vital Signs Temp 36.6 C 07/11/20 03:51 Pulse 84 07/11/20 03:51 Resp 14 07/11/20 07:00 BP 115/62 07/11/20 03:51 Pulse Ox 99 07/11/20 07:00
[2020-07-11] MEDS: Pantoprazole 40 MG Tab.CR PO SCH (09:47)
[2020-07-11] MEDS ORDERED: diphenhydrAMINE 50 MG/ML SDV IV ONE (14:04)
--- NOTE | 2020-07-11 14:08 | PCM.SN.2 ---
- Free Text/Narrative Note: Patient ambulating with assist in hallway. Became very light headed and nearly passed out. Assisted to room with desk chair. Given necessity for 4 u pRBC within discussed transfusion now given postoperative state and symptomatic anemia. Patient voices understanding. Transfusion ordered. Post cbc ordered for tomorrow.
[2020-07-11] MEDS ORDERED: Ondansetron 4 MG/2 ML SDV IVPUSH ONE (14:11)
[2020-07-11] MEDS ORDERED: Sodium Chloride 0.9% 1,000 ML IV SCH (14:15)
[2020-07-11] MEDS: Simethicone 80 MG Tab.Chew PO PRN ×2 (14:47→20:05)
[2020-07-11] MEDS: Sodium Chloride 0.9% 250 ML ONE ×2 (15:45→19:20)
[2020-07-11] MEDS: Docusate Sodium 100 MG Cap PO PRN (20:05)
[2020-07-11] MEDS ORDERED: LAMOTRIGINE 100 MG PO SCH (21:00)
[2020-07-11] MEDS ORDERED: LEXAPRO 20 MG PO SCH (21:00)
[2020-07-11] MEDS: Ibuprofen 600 MG Tab PO PRN (21:56)
[2020-07-12] MEDS: Acetaminophen/oxyCODONE 325-5 MG Tab PO PRN ×4 (00:31→13:06)
[2020-07-12] MEDS: Pantoprazole 40 MG Tab.CR PO SCH (08:07)
[2020-07-12] MEDS: Ibuprofen 600 MG Tab PO PRN ×2 (08:07→15:10)
--- NOTE | 2020-07-12 10:31 | PCM.DCSUM1 ---
Discharge Summary - Hospital Course Free Text/Narrative:: Nichelle is a 44-year-old multigravida white female who was admitted on 07/10/2020 after nonreassuring testing. She was taken for an urgent section for nonreassuring heart tones. Please see admission history and physical for details preceding surgery. Please see operative report for details of the procedure. Postoperatively pain has been controlled with ibuprofen and Percocet. She has made good bowel, bladder and ambulatory recovery. Her blood count dropped to 8 hemoglobin and patient was given 2 units of packed red blood cells. Most recent hemoglobin is 10.1 and patient is doing well clinically. Her vital signs been stable and she has been afebrile in the postoperative period she is nursing. Patient is voiding well, ambulating without problems, she is nursing without concerns and has had minimal lochia. She is desiring discharge home. Diagnosis: Stroke: No - Discharge Data Discharge Date: 07/12/20 Discharge Disposition: Home, Self-Care 01 Condition: Good - Referral to Home Health Primary Care Physician: Jesús Mejia MD - Patient Summary/Data Operative Procedure(s) Performed: primary section. - Patient Instructions Diet: Regular Diet as Tolerated (Nursing diet with increased calories and calcium as recommended) Activity: As Tolerated (No lifting greater than 15 pounds or driving a car x7 to 10 days. No intercourse or tampons until bleeding resolves.) Driving: Do Not Drive Showering/Bathing: May Shower Wound/Incision Care: Keep Operative Site/Wound Site Clean and Dry Notify Provider of: Fever, Increased Pain, Swelling and Redness, Nausea and/or Vomiting - Discharge Plan Home Medications: Home Meds lamoTRIgine [Lamotrigine] 150 mg PO DAILY 03/20/19 [History] Escitalopram [Lexapro] 20 mg PO DAILY 07/11/20 [History] Acetaminophen/oxyCODONE [Percocet 325-5 MG] 2 tab PO Q4H PRN tablet 07/12/20 [Rx] Ibuprofen [Motrin] 600 mg PO Q6H PRN tablet 07/12/20 [Rx] Referrals: Jesús Mejia MD [Primary Care Provider] - (Return to clinic[facility]. [facility] weeks.) - Discharge Summary/Plan Comment DC Time >30 min.: No Discharge Summary/Plan Comment: Discharge instructions: 1. Discharge home 2. Diet, activity and follow-up discussed with patient. Recommend nursing diet with increased calories and calcium. 3. Precautions given concern increased pain, bleeding, temperature, signs/symptoms of DVT/PE. 4. Medications per home medication was printed, discussed with and given to the patient. 5. Return to clinic-Dr. Mejia[facility] in 3 weeks. Diagnosis: 1. Term -nonreassuring heart tones resulting in a primary urgent sectionbaby delivered 2. History of gestational diabetes, AMA, history of miscarriages Condition: Good - Patient Data Vitals - Most Recent: Last Vital Signs Temp 37.1 C 07/12/20 03:09 Pulse 86 07/12/20 03:09 Resp 14 07/12/20 03:09 BP 128/84 07/12/20 03:09 Pulse Ox 98 07/12/20 03:09 Weight - Most Recent: 68.039 kg I&O - Last 24 hours: Intake & Output 07/11/20 07/12/20 07/12/20 22:59 06:59 14:59 Intake Total 1134 Output Total 2250 400 Balance -1116 -400 Lab Results - Last 24 hrs: Laboratory Results - last 24 hr 07/10/20 07/12/20 Range/Units 20:27 04:30 WBC 9.83 (3.98-10.04) K/mm3 RBC 3.89 L (3.98-5.22) M/mm3 Hgb 10.1 L D (11.2-15.7) gm/dl Hct 32.0 L (34.1-44.9) % MCV 82.3 (79.4-94.8) fl MCH 26.0 (25.6-32.2) pg MCHC 31.6 L (32.2-35.5) g/dl RDW Std Deviation 55.1 H (36.4-46.3) fL Plt Count 222 (182-369) K/mm3 MPV 9.2 L (9.4-12.3) fl Neut % (Auto) 77.1 H (34.0-71.1) % Lymph % (Auto) 12.1 L (19.3-51.7) % Mccreary % (Auto) 8.5 (4.7-12.5) % Eos % (Auto) 1.1 (0.7-5.8) Baso % (Auto) 0.2 (0.1-1.2) % Neut # (Auto) 7.57 H (1.56-6.13) K/mm3 Lymph # (Auto) 1.19 (1.18-3.74) K/mm3 Mccreary # (Auto) 0.84 H (0.24-0.36) K/mm3 Eos # (Auto) 0.11 (0.04-0.36) K/mm3 Baso # (Auto) 0.02 (0.01-0.08) K/mm3 Blood Type O POSITIVE Gel Antibody Screen Negative Crossmatch See Detail Med Orders - Current: Current Medications Diphenhydramine HCl (Benadryl) 25 mg IVPUSH Q6H PRN PRN Reason: Itching or Nausea Docusate Sodium (Colace) 100 mg PO Q12H PRN PRN Reason: Constipation Last Admin: 07/11/20 20:05 Dose: 100 mg Documented by: Ephedrine Sulfate (Ephedrine Sulfate) 5 mg IVPUSH SEECOMMENT PRN PRN Reason: Other Sodium Chloride (Normal Saline) 1,000 mls @ 125 mls/hr IV ASDIRECTED [facility] Ibuprofen (Motrin) 600 mg PO Q6H PRN PRN Reason: mild pain or fever Last Admin: 07/12/20 08:07 Dose: 600 mg Documented by: Lamotrigine (Lamotrigine) 150 mg PO BEDTIME [facility]ICAELA Naloxone HCl (Narcan) 0.1 mg IVPUSH SEECOMMENT PRN PRN Reason: Respiratory Depression Lexapro 20 Mg Ptom 0 each PO BEDTIME [facility] Oxycodone/Acetaminophen (Percocet 325-5 Mg) 1 tab PO Q4H PRN PRN Reason: Pain (moderate 4-6) Last Admin: 07/11/20 14:47 Dose: 1 tab Documented by: Oxycodone/Acetaminophen (Percocet 325-5 Mg) 2 tab PO Q4H PRN PRN Reason: Pain (severe 7-10) Last Admin: 07/12/20 09:14 Dose: 2 tab Documented by: Pantoprazole Sodium (Protonix) 40 mg PO DAILY [facility] Last Admin: 07/12/20 08:07 Dose: 40 mg Documented by: Simethicone (Simethicone) 160 mg PO ASDIRECTED PRN PRN Reason: SEE LABEL COMMENTS Last Admin: 07/11/20 20:05 Dose: 160 mg Documented by: Discontinued Medications Bupivacaine HCl (Marcaine 0.5%) Confirm Administered Dose 30 ml .ROUTE .STK-MED ONE Stop: 07/10/20 20:40 Last Admin: 07/10/20 21:08 Dose: 20 ml Documented by: Citric Acid/Sodium Citrate (Bicitra Solution) Confirm Administered Dose 30 ml .ROUTE .STK-MED ONE Stop: 07/10/20 20:22 Last Admin: 07/10/20 20:26 Dose: 30 ml Documented by: Citric Acid/Sodium Citrate (Bicitra Solution) 30 ml PO ONETIME ONE Stop: 07/10/20 20:29 Last Admin: 07/11/20 01:09 Dose: Not Given Documented by: Diphenhydramine HCl (Benadryl) 25 mg IVPUSH Q6H PRN PRN Reason: Pruritis Diphenhydramine HCl (Benadryl) 25 mg IV ONETIME ONE Stop: 07/11/20 14:05 Last Admin: 07/11/20 15:31 Dose: 25 mg Documented by: Fentanyl (Sublimaze) Confirm Administered Dose 100 mcg .ROUTE .STK-MED ONE Stop: 07/10/20 20:43 Fentanyl (Sublimaze) 50 mcg IVPUSH Q5M PRN PRN Reason: Pain Gentamicin Sulfate (Pharmacy To Dose - Gentamicin) 1 dose .XX ASDIRECTED [facility] Gentamicin Sulfate (Gentamicin) Confirm Administered Dose 160 mg .ROUTE .STK-MED ONE Stop: 07/10/20 20:40 Last Admin: 07/11/20 01:08 Dose: Not Given Documented by: Lactated Ringer's (Ringers, Lactated) Confirm Administered Dose 1,000 mls @ as directed .ROUTE .STK-MED ONE Stop: 07/10/20 20:22 Last Admin: 07/10/20 20:26 Dose: 999 mls/hr Documented by: Lactated Ringer's (Ringers, Lactated) 1,000 mls @ 125 mls/hr IV ASDIRECTED [facility] Oxytocin/Lactated Ringer's (Pitocin In Lr 10 Units/1,000 Ml) 10 unit in 1,000 mls @ 100 mls/hr IV ASDIRECTED [facility] Clindamycin Phosphate 900 mg/ (Premix) 50 mls @ 100 mls/hr IV ONETIME ONE Stop: 07/10/20 21:00 Last Admin: 07/11/20 01:19 Dose: 100 mls/hr Documented by: Sodium Chloride (Normal Saline) Confirm Administered Dose 100 mls @ as directed .ROUTE .STK-MED ONE Stop: 07/10/20 20:41 Last Admin: 07/11/20 01:19 Dose: 200 mls/hr Documented by: Gentamicin Sulfate 108 mg/ (Sodium Chloride) 102.7 mls @ 102.7 mls/hr IV Q8H [facility] Last Admin: 07/11/20 01:19 Dose: 102.7 mls/hr Documented by: Lactated Ringer's (Ringers, Lactated) Confirm Administered Dose 1,000 mls @ as directed .ROUTE .[facility]-MED ONE Stop: 07/10/20 21:20 Dextrose/Lactated Ringer's (Dextrose 5%-Lactated Ringers) 1,000 mls @ 125 mls/ hr IV ASDIRECTED [facility] Stop: 07/11/20 08:45 Last Admin: 07/11/20 01:16 Dose: 125 mls/hr Documented by: Sodium Chloride (Normal Saline) Confirm Administered Dose 250 mls @ as directed .ROUTE .STK-MED ONE Stop: 07/11/20 15:29 Last Admin: 07/11/20 19:20 Dose: 25 mls/hr Documented by: Ketorolac Tromethamine (Toradol) Confirm Administered Dose 30 mg .ROUTE .STK-MED ONE Stop: 07/10/20 21:39 Ketorolac Tromethamine (Toradol) 30 mg IVPUSH Q6H [facility] Stop: 07/11/20 16:01 Last Admin: 07/11/20 15:42 Dose: 30 mg Documented by: Metoclopramide HCl (Reglan) Confirm Administered Dose 10 mg .ROUTE .STK-MED ONE Stop: 07/10/20 20:22 Last Admin: 07/10/20 20:28 Dose: 10 mg Documented by: Metoclopramide HCl (Reglan) 10 mg IVPUSH ONETIME ONE Stop: 07/10/20 20:29 Last Admin: 07/11/20 01:09 Dose: Not Given Documented by: Miscellaneous Medication (Phenylephrine 1 Mg/10 Ml-Ns) Confirm Administered Dose 1 mg .ROUTE .STK-MED ONE Stop: 07/10/20 21:06 Morphine Sulfate (Duramorph Pf) Confirm Administered Dose 10 mg .ROUTE .STK-MED ONE Stop: 07/10/20 20:43 Ondansetron HCl (Zofran) 4 mg IVPUSH ONETIME PRN PRN Reason: Nausea/Vomiting Ondansetron HCl (Zofran) 4 mg IVPUSH ONETIME ONE Stop: 07/11/20 14:12 Last Admin: 07/11/20 15:35 Dose: 4 mg Documented by: Oxytocin (Pitocin) Confirm Administered Dose 20 unit .ROUTE .STK-MED ONE Stop: 07/10/20 20:43 Sodium Chloride (Saline Flush) 10 ml FLUSH ASDIRECTED PRN PRN Reason: Keep Vein Open
[2020-07-12] MEDS: Docusate Sodium 100 MG Cap PO PRN (13:06)
[2020-07-12] MEDS: Simethicone 80 MG Tab.Chew PO PRN (13:06)
== END 2020-07-12 15:40 | disposition home or self-care (01) | DRG 787 ==
LOC: JD.OBCHECK 17:35 → JD.OB 17:39 → JD.OBCHECK 21:13 → JD.OB 21:22
PROVIDERS: ADMIT Obstetrics & Gynecology; ATTEND Obstetrics & Gynecology
PROC: 10D00Z1 Extraction of Products of Conception, Low, Open Approach (ICD-10-PCS; principal; 2020-07-10)
DX: O76 Abnormality in fetal heart rate and rhythm complicating labor and delivery (principal); D62 Acute posthemorrhagic anemia; Z37.0 Single live birth; Z3A.38 38 weeks gestation of pregnancy; O99.02 Anemia complicating childbirth; D64.9 Anemia, unspecified; O24.420 Gestational diabetes mellitus in childbirth, diet controlled; Z20.822 Contact with and (suspected) exposure to COVID-19
CPT/HCPCS: 01961; 36415; 36430; 59025; 82962; 85025; 85027; 86592; 86850; 86900; 86901; 86922; 94762; A9270-GY; J1200; J1580; J1885; J2270; J2370; J2405; J2590; J2765; J3010; J3490; J7050; J7120; J7121; P9016; U0002